=== PATIENT | female | born 1955 | race Caucasian/White ===

== ENCOUNTER → 2020-01-04 11:28 | Outpatient (BNVA) | payer MEDICARE, OTHER, SELFPAY | PROVIDERS: PCP Internal Medicine; Referring Provider Internal Medicine; Visit Provider Physician Assistant | DX: E66.3 Overweight (principal); Z68.26 Body mass index [BMI] 26.0-26.9, adult; K90.49 Malabsorption due to intolerance, not elsewhere classified; Z98.84 Bariatric surgery status | CPT/HCPCS: 99212 ==

== ENCOUNTER → 2020-01-19 14:31 | Outpatient (BNVA) | payer MEDICARE, SELFPAY | PROVIDERS: PCP Internal Medicine; Referring Provider Internal Medicine; Visit Provider Dietitian, Registered | DX: Z76.89 Persons encountering health services in other specified circumstances (principal) ==

== ENCOUNTER 2020-02-09 14:22 | Outpatient (REF) | payer MEDICARE, OTHER, SELFPAY | END 2020-02-09 14:23 | disposition home or self-care (01) | LOC: HO.HMGCLDS 14:22 | PROVIDERS: PCP Internal Medicine; Visit Provider Internal Medicine | DX: Z20.828 Contact with and (suspected) exposure to other viral communicable diseases (principal) | CPT/HCPCS: C9803; U0003 ==

== ENCOUNTER → 2020-03-10 09:29 | Outpatient (BNVA) | payer MEDICARE, SELFPAY | PROVIDERS: PCP Internal Medicine; Referring Provider Internal Medicine; Visit Provider Physician Assistant | DX: E66.3 Overweight (principal); K90.49 Malabsorption due to intolerance, not elsewhere classified; Z98.84 Bariatric surgery status | CPT/HCPCS: 99212 ==

== ENCOUNTER → 2020-04-26 15:23 | Outpatient (BNVA) | payer MEDICARE, SELFPAY | PROVIDERS: PCP Internal Medicine; Referring Provider Internal Medicine; Visit Provider Dietitian, Registered ==

== ENCOUNTER → 2020-07-04 09:06 | Outpatient (BNVA) | payer MEDICARE, SELFPAY | PROVIDERS: PCP Internal Medicine; Visit Provider Physician Assistant | DX: E66.3 Overweight (principal); K90.49 Malabsorption due to intolerance, not elsewhere classified; Z90.3 Acquired absence of stomach [part of]; Z68.27 Body mass index [BMI] 27.0-27.9, adult | CPT/HCPCS: 99212 ==

== ENCOUNTER 2020-08-25 07:04 | Outpatient (REF) | payer MEDICARE, SELFPAY ==
[2020-08-25 08:19] LABS: MANUAL DIFF FLAG NO
[2020-08-25 08:38] LABS: Basophils Percent Auto 0.8 % (0-2); Eosinophils Absolute Auto 0.1 X10*3/uL (0.0-0.4); Eosinophils Percent Auto 2.3 % (0-4); Hemoglobin 12.4 g/dl (12.0-16.0); Lymphocytes Absolute Auto 2.4 X10*3/uL (1.2-4.9); Mean Corpuscular HGB Conc 33.5 g/dl (31.0-35.0); Mean Corpuscular Volume 89.6 fL (80-98); Mean Platelet Volume 9.7 fL (9.4-12.3); Monocytes Absolute Auto 0.4 X10*3/uL (0.1-1.2); Monocytes Percent Auto 8.8 % (2-11); Neutrophils Absolute Auto 1.8 X10*3/uL (2.0-8.3); Neutrophils Percent Auto 38.1 % (45-73); Platelet Count 181 X10*3/uL (160-400); Red Blood Count 4.13 X10*6/uL (4.20-5.50); Red Cell Distribution Width 12.7 % (11.0-16.0); White Blood Count 4.8 X10*3/uL (4.8-10.8)
[2020-08-25 08:41] LABS: Estimated Average Glucose 91 mg/dL; Hemoglobin A1c % 4.8 %
[2020-08-25 08:51] LABS: Alanine Aminotransferase 11 U/L (0-31); Albumin Level 4.3 g/dL (3.5-5.0); Alkaline Phosphatase 71 U/L (39-117); Anion Gap 9 (12-20); Aspartate Amino Transferase 21 U/L (5-31); Bilirubin Total 0.7 mg/dL (0.0-1.0); Blood Urea Nitrogen 22 mg/dL (9-16); C Reactive Protein 0.09 mg/dL (< or = 0.50); Calcium 9.5 mg/dL (8.4-10.2); Carbon Dioxide 29 mmol/L (22-29); Chloride 107 mmol/L (96-108); Cholesterol 179 mg/dL; Estimated Glomerular Filt Rate > 60; Glucose Fasting 86 mg/dL (60-99); HDL Cholesterol 77 mg/dL; Iron 124 mcg/dL (30-160); LDL Cholesterol Calculated 93 mg/dl; Percent Iron Saturation 47 % (15-50); Sodium 141 mmol/L (135-145); Total Iron Binding Capacity 262 mcg/dL (228-428); Total Protein 6.3 g/dL (6.5-8.0); Triglycerides 45 mg/dL; Unsaturated Iron Binding 138 ug/dL
[2020-08-25 09:12] LABS: Ferritin 210 ng/mL (10-250); TSH reflex Free T4 1.27 uIU/mL (0.32-4.0)
[2020-08-25 10:35] LABS: Folate 19.2 ng/mL (> or = 4.0); Vitamin B12 1263 pg/mL (200-900)
[2020-08-26 09:22] LABS: Insulin Level Total 4.5 uIU/mL
[2020-08-26 13:26] LABS: Calcium (PTHI) 9.3 mg/dL (8.6-10.4); PTHI 26 pg/mL (14-64)
[2020-08-27 16:57] LABS: Zinc 79 mcg/dL (60-130)
[2020-08-31 12:27] LABS: Vitamin B1 19 nmol/L (8-30)
[2020-08-31 13:41] LABS: Vitamin A 49 mcg/dL (38-98)
== END 2020-08-25 07:05 | disposition home or self-care (01) ==
LOC: HO.LAB 07:04
PROVIDERS: PCP Internal Medicine; Visit Provider Physician Assistant
DX: K91.2 Postsurgical malabsorption, not elsewhere classified (principal); Z90.3 Acquired absence of stomach [part of]; E66.3 Overweight; K90.49 Malabsorption due to intolerance, not elsewhere classified
CPT/HCPCS: 36415; 80053; 80061; 82306; 82607; 82728; 82746; 83036; 83525; 83540; 83970; 84425; 84443; 84590; 84630; 85025; 86140

== ENCOUNTER → 2020-08-29 10:21 | Outpatient (BNVA) | payer MEDICARE, SELFPAY | PROVIDERS: PCP Internal Medicine; Referring Provider Internal Medicine; Visit Provider Surgery | DX: E66.3 Overweight (principal); Z68.27 Body mass index [BMI] 27.0-27.9, adult | CPT/HCPCS: 99212 ==

== ENCOUNTER → 2020-11-24 13:41 | Outpatient (BNVA) | payer MEDICARE, SELFPAY | PROVIDERS: PCP Internal Medicine; Referring Provider Internal Medicine; Visit Provider Surgery | DX: E66.3 Overweight (principal); Z68.27 Body mass index [BMI] 27.0-27.9, adult; Z90.3 Acquired absence of stomach [part of] | CPT/HCPCS: 99212 ==

== ENCOUNTER 2020-12-26 08:07 | Outpatient (REF) | payer MEDICARE, SELFPAY ==
--- NOTE | ~2020-12-26 | XR_ITS ---
EXAMINATION: XR KNEE, LEFT CLINICAL INFORMATION: Pain in unspecified knee. COMPARISON: Right knee done on 01/13/2016. TECHNIQUE: 2 views of the left knee and single upright frontal view of both knees were obtained. FINDINGS: Left knee: The bony alignments are intact. The cortices are intact. The tip joint space, subchondral sclerosis, osteophyte formation, consistent with moderate tricompartmental osteoarthrosis is present. Right knee: Single upright frontal view also shows evidence of mild to moderate medial and lateral compartmental osteoarthrosis, similar to prior study dated 01/13/2016.. XR/XR knee LT 2V IMPRESSION: 1. Moderate tricompartmental left knee osteoarthrosis. 2. Mild to moderate medial and lateral compartmental right knee osteoarthrosis.
--- NOTE | ~2020-12-26 | XR_ITS ---
EXAMINATION: XR KNEE AP STANDING CLINICAL INFORMATION: Pain in knees COMPARISON: None TECHNIQUE: AP bilateral standing view of the knees was obtained. Lateral and sunrise views of the left knee. FINDINGS: Right knee: Moderate to marked medial cartilage space loss with moderate medial and lateral marginal osteophytes. Soft tissue calcifications in the mid calf. Left knee: Marked degenerative changes in the patellofemoral compartment with joint space during and hypertrophic change. Joint effusion present. Soft tissue calcifications are nonspecific. Possible bony exostosis along the shaft of the proximal diaphysis of the tibia was not appreciated on 01/13/2016. XR/XR knee standing BI IMPRESSION: Interval progression of marked degenerative changes in the medial and patellofemoral compartments.
== END 2020-12-26 08:08 | disposition home or self-care (01) ==
LOC: HO.HOSX 08:07
PROVIDERS: Visit Provider Physician Assistant
DX: M17.0 Bilateral primary osteoarthritis of knee (principal)
CPT/HCPCS: 73560; 73565; 99202

== ENCOUNTER → 2021-02-20 09:01 | Outpatient (BNVA) | payer MEDICARE, SELFPAY | PROVIDERS: PCP Internal Medicine; Referring Provider Internal Medicine; Visit Provider Dietitian, Registered | DX: E66.9 Obesity, unspecified (principal); Z68.27 Body mass index [BMI] 27.0-27.9, adult | CPT/HCPCS: 97803 ==

== ENCOUNTER → 2021-03-28 14:23 | Outpatient (BNVA) | payer MEDICARE, SELFPAY | PROVIDERS: PCP Internal Medicine; Visit Provider Physician Assistant | DX: M17.0 Bilateral primary osteoarthritis of knee (principal) | CPT/HCPCS: 20610; 99212; J7318 ==

== ENCOUNTER 2021-05-27 10:55 | Outpatient (REF) | payer MEDICARE, SELFPAY ==
[2021-05-27 11:27] LABS: MANUAL DIFF FLAG NO
[2021-05-27 11:41] LABS: Basophils Absolute Auto 0.1 X10*3/uL (0.0-0.2); Basophils Percent Auto 0.8 % (0-2); Eosinophils Absolute Auto 0.1 X10*3/uL (0.0-0.4); Eosinophils Percent Auto 1.8 % (0-4); Hematocrit 37.5 % (37.0-47.0); Hemoglobin 12.4 g/dl (12.0-16.0); Imm Gran Abs Auto 0.02 X10*3/uL (0.00-0.03); Imm Gran Pct Auto 0.3 % (0.0-0.4); Lymphocytes Absolute Auto 2.2 X10*3/uL (1.2-4.9); Lymphocytes Percent Auto 35.6 % (20-40); Mean Corpuscular HGB Conc 33.1 g/dl (31.0-35.0); Mean Corpuscular Hemoglobin 30.2 pg (27.0-33.0); Mean Corpuscular Volume 91.5 fL (80.0-98.0); Mean Platelet Volume 9.2 fL (9.4-12.3); Monocytes Absolute Auto 0.5 X10*3/uL (0.1-1.2); Monocytes Percent Auto 8.7 % (2-11); Neutrophils Absolute Auto 3.2 x10*3/uL (2.0-8.3); Neutrophils Percent Auto 52.8 % (45-73); Platelet Count 184 X10*3/uL (160-400); Red Cell Distribution Width 13.3 % (11.0-16.0); White Blood Count 6.1 X10*3/uL (4.8-10.8)
[2021-05-27 12:11] LABS: Alanine Aminotransferase 18 U/L (0-31); Albumin Level 4.2 g/dL (3.5-5.0); Alkaline Phosphatase 75 U/L (39-117); Anion Gap 10 (12-20); Aspartate Amino Transferase 22 U/L (5-31); Bilirubin Total 0.6 mg/dL (0.0-1.0); Blood Urea Nitrogen 21 mg/dL (9-16); Calcium 9.6 mg/dL (8.4-10.2); Carbon Dioxide 30 mmol/L (22-29); Chloride 108 mmol/L (96-108); Estimated Glomerular Filt Rate > 60; Glucose Random 95 mg/dL (60-115); Potassium 4.4 mmol/L (3.3-5.1); Sodium 144 mmol/L (135-145); Total Protein 6.4 g/dL (6.5-8.0)
[2021-05-27 12:34] LABS: Vitamin D 25-OH Total 54.7 ng/mL (>30)
[2021-05-29 04:05] LABS: ~HepC Num1 0.06 S/CO (0.00-0.79); ~Hepatitis C Antibody Nonreactive (Nonreactive)
== END 2021-05-27 10:56 | disposition home or self-care (01) ==
LOC: HO.LAB 10:55
PROVIDERS: PCP Internal Medicine; Visit Provider Nurse Practitioner Family
DX: Z00.00 Encounter for general adult medical examination without abnormal findings (principal); E55.9 Vitamin D deficiency, unspecified
CPT/HCPCS: 36415; 80053; 82306; 85025; 86803

== ENCOUNTER 2022-05-28 10:54 | Outpatient (REF) | payer MEDICARE, SELFPAY ==
[2022-05-28 12:51] LABS: Estimated Average Glucose 97 mg/dL
[2022-05-28 13:10] LABS: Alanine Aminotransferase 13 U/L (0-31); Alkaline Phosphatase 88 U/L (39-117); Anion Gap 11 (12-20); Aspartate Amino Transferase 21 U/L (5-31); Bilirubin Total 0.7 mg/dL (0.0-1.0); Blood Urea Nitrogen 18 mg/dL (9-16); C Reactive Protein 0.75 mg/dL (< or = 0.50); Calcium 9.4 mg/dL (8.4-10.2); Carbon Dioxide 29 mmol/L (22-29); Chloride 105 mmol/L (96-108); Estimated Glomerular Filt Rate > 60; Glucose Random 92 mg/dL (60-115); Iron 124 mcg/dL (30-160); Percent Iron Saturation 51 % (15-50); Potassium 4.7 mmol/L (3.3-5.1); Sodium 140 mmol/L (135-145); Total Iron Binding Capacity 243 mcg/dL (228-428); Total Protein 6.3 g/dL (6.5-8.0); Unsaturated Iron Binding 119 ug/dL
[2022-05-28 13:39] LABS: Ferritin 253 ng/mL (10-250); Folate 14.4 ng/mL (> or = 4.0); Insulin 5 uU/mL (2-29); TSH reflex Free T4 0.91 uIU/mL (0.32-4.0); Vitamin B12 1559 pg/mL (200-900); Vitamin D 25-OH Total 54.3 ng/mL (>30)
[2022-05-29 16:13] LABS: Calcium (PTHI) 9.4 mg/dL (8.6-10.4); PTHI 22 pg/mL (16-77)
[2022-05-31 01:29] LABS: Zinc 60 mcg/dL (60-130)
[2022-05-31 19:53] LABS: Vitamin A 47 mcg/dL (38-98)
[2022-06-01 06:08] LABS: Vitamin B1 24 nmol/L (8-30)
== END 2022-05-28 10:55 | disposition home or self-care (01) ==
LOC: HO.LAB 10:54
PROVIDERS: PCP Internal Medicine; Visit Provider Physician Assistant Surgical
DX: E66.9 Obesity, unspecified (principal); Z90.3 Acquired absence of stomach [part of]; Z98.84 Bariatric surgery status; Z68.32 Body mass index [BMI] 32.0-32.9, adult; Z79.899 Other long term (current) drug therapy; K91.2 Postsurgical malabsorption, not elsewhere classified
CPT/HCPCS: 36415; 80053; 82306; 82607; 82728; 82746; 83036; 83525; 83540; 83970; 84425; 84443; 84590; 84630; 86140; 99212

== ENCOUNTER → 2022-07-16 08:35 | Outpatient (BNVA) | payer MEDICARE, SELFPAY | PROVIDERS: PCP Internal Medicine; Visit Provider Physician Assistant Surgical | DX: Z90.3 Acquired absence of stomach [part of] (principal); E66.9 Obesity, unspecified; Z68.31 Body mass index [BMI] 31.0-31.9, adult | CPT/HCPCS: 99212 ==

== ENCOUNTER 2022-09-17 08:28 | Outpatient (AMB) | payer MEDICARE, SELFPAY ==
--- NOTE | 2022-09-17 08:33 | A.OFFVIS_ITS ---
Intake VS Expanded 09/17/22 08:41 Height 5 ft 5 in Weight 188 lb 12.8 oz BMI 31.4 BP 133/63 Blood Pressure Location Lt brachial Blood Pressure Position Sitting Pulse 46 L Pulse Source Pulse Oximeter Temp 97.6 F Temperature Source Temporal Artery Scan Pulse Oximetry 98 Oxygen Delivery Method Room Air Body Fat 73.2 Body Fat Percentage 38.8 Free Fat Mass 115.6 Muscle Mass 109.6 Visceral Mass 11.0 Water Mass 81.8 BMR 1,574 Intake Visit Reasons: (OV) LSG 08/27/2018 Allergies Seasonal Allergies Allergy (Mild, Verified 09/17/22 08:38) Sneezing latex [LATEX] Allergy (Unknown, Verified 09/17/22 08:38) RASH Medication List - Last Reconciled 09/17/22 by Chika Golden LPN bupropion HCl 100 mg PO BID calcium carbonate-vitamin D3 600 mg-12.5 mcg (500 unit) (Calcium 600 with Vitamin D3) caps PO [id number]-[id number]-FA-vit K 45 mg iron- 800 mcg-120 mcg (Bariatric Multivitamins) caps PO nicotinamide mononucleotide mg PO HPI HPI Comments History of Present Illness Details This?is a?67?yo female who is s/p LSG 08/27/2018. 1lb weight gain since last visit 2 months ago. No complaints of nausea, emesis, abdominal pain or reflux, or constipation. Present meal plan includes: Stopped shakes, eating more cheese breakfast- egg and cheese in a low carb or almond flour wrap 1 snack (protein bar, yogurt, or 2 HB eggs), and one meal 3oz protein/3oz veg Not always totally consistent with plan has been having some ice cream, nuts All meals last 20 - 30 minutes and does not drink and eat at the same time. Exercise routine includes: bike, walking for 4 miles or going to gym, sometimes up to 2 hours; at least 3x/week [facility] Medical History (Updated 05/28/22 @ 11:29 by EVELYN Brown) Anxiety Basal cell carcinoma Intestinal malabsorption following gastrectomy Malabsorption due to intolerance, not elsewhere classified Mohs defect Morbid obesity Osteoarthritis Overweight (BMI 25.0-29.9) Surgical History History of melanoma excision History of repair of hiatal hernia History of root canal procedure Hx of knee surgery S/P endometrial ablation S/P laparoscopic sleeve gastrectomy Status post bilateral LASIK surgery Family History Father Pulmonary embolism Mother CHF (congestive heart failure) DM (diabetes mellitus) Brother No problems noted. Brother No problems noted. Brother No problems noted. Brother No problems noted. Social History Alcohol intake: current Alcohol intake frequency: holidays/special occasions on ly Patient Tobacco Use Status: Never used Tobacco Physical Exam Vital Signs: Last Vital Signs Temp 97.6 F 09/17/22 08:41 Pulse 46 L 09/17/22 08:41 BP 133/63 09/17/22 08:41 Pulse Ox 98 09/17/22 08:41 Oxygen Delivery Method Room Air 09/17/22 08:41 BMI result Body Mass Index 31.4 Assessment & Plan Assessment & Plan (1) Status post sleeve gastrectomy: Code(s): Z90.3 - Acquired absence of stomach [part of] (2) Obesity: Code(s): E66.9 - Obesity, unspecified Plan Goal protein intake 75g/day. Discussed that pt needs adequate protein intake to help with weight loss, likely not getting it now. Gave handout on protein blancas to help increase protein intake. Also encouraged yogurt more consistently as another small meal. Goal weight in 160s. Reviewed Tanita; increase in muscle mass and water weight, decrease in body fat. RTC 4 months per pt preference; encouraged her to text me between appts with any questions. Patient is obese and is not considered stable at this time. I spent a total of 30 minutes reviewing/updating records, examining the patient and counseling the patient on weight management as detailed above. Coding Level of Care Code Est Pt Level 4 (83170) Diagnoses Status post sleeve gastrectomy Z90.3 Obesity E66.9
[2022-09-17 08:41] VITALS: BP 133/63; PULSE 46; TEMP 36.4; O2SAT 98; BMI 31.4
== END 2022-09-17 09:19 | disposition home or self-care (01) ==
PROVIDERS: Visit Provider Physician Assistant Surgical
DX: E66.9 Obesity, unspecified (principal); Z68.31 Body mass index [BMI] 31.0-31.9, adult; Z90.3 Acquired absence of stomach [part of]; Z98.84 Bariatric surgery status
CPT/HCPCS: 99214

== ENCOUNTER → 2022-09-17 08:28 | Outpatient (BNVA) | payer MEDICARE, SELFPAY | PROVIDERS: Visit Provider Physician Assistant Surgical | DX: E66.3 Overweight (principal); K90.49 Malabsorption due to intolerance, not elsewhere classified; Z68.31 Body mass index [BMI] 31.0-31.9, adult; Z90.3 Acquired absence of stomach [part of] | CPT/HCPCS: 99212 ==

== ENCOUNTER 2024-02-12 16:29 | Outpatient (REF) | payer MEDICARE, SELFPAY ==
--- NOTE | ~2024-02-12 | US_ITS ---
EXAMINATION: US TRIPLEX LOWER EXTREMITY, BILATERAL CLINICAL INFORMATION: Bilateral lower extremity edema COMPARISON: None available. TECHNIQUE: Color-flow triplex imaging with spectral analysis and compression Doppler were performed on the bilateral lower extremities. FINDINGS: Respiratory variation, normal compression and augmented flow are noted throughout the bilateral lower extremities. The visualized common femoral vein, superficial femoral vein, profunda femoral vein, popliteal vein and midcalf peroneal and posterior tibial venous segments show no evidence of deep venous thrombosis bilaterally. There is no Barkley's cyst. US/US venous duplex LE BI IMPRESSION: No evidence of deep venous thrombosis involving the bilateral lower extremities. Electronically signed by: Loren Hannah MD 02/12/2024 05:40 PM EST
== END 2024-02-12 16:30 | disposition home or self-care (01) ==
LOC: HO.US 16:29
PROVIDERS: Visit Provider Physician Assistant Surgical
DX: R60.0 Localized edema (principal)
CPT/HCPCS: 93970